=== PATIENT | female | born 1975 | race Caucasian/White ===

== ENCOUNTER 2024-12-25 08:59 | Emergency (ER) | payer OTHER, SELFPAY ==
[2024-12-25 09:12] VITALS: BP 150/85; PULSE 94; RESP 16; TEMP 36.3; O2SAT 100
--- NOTE | 2024-12-25 09:14 | ED.URI ---
HPI - URI/Sore Throat General Chief Complaint: Upper Respiratory Infection Stated Complaint: Upper Respiratory Infection Time Seen by Provider: 12/25/24 09:14 Source: patient Mode of arrival: ambulatory Limitations: no limitations History of Present Illness HPI Narrative: 49-year-old female with history of asthma presents with complaint of shortness of breath, wheezing. Patient visiting from out of town. Reports shortness of breath worse last night while laying in bed. States she can hear crackles in chest when laying flat at bedtime. Use Xopenex and did not feel like it was helping. Patient uses Xopenex inhaler due to albuterol causing jitteriness. Has appt with her business continuity coordinator in March. Tried singulair but felt it made symptoms worse. No URI symptoms. All systems reviewed and negative except as noted above. Related Data Home Medications ?Medication ?Instructions ?Recorded ?Confirmed ?Last Taken ?Type doxycycline monohydrate 40 mg PO 12/25/24 Unknown History capsule,immediate - delay release levalbuterol tartrate 45 inhalation 12/25/24 Unknown History mcg/actuation aerosol inhaler Allergies Allergy/AdvReac Type Severity Reaction Status Date / Time No Known Allergies Allergy Verified 12/25/24 09:23 Review of Systems Review of Systems: CONSTITUTIONAL: Denies fever, chills, or sweats. EYES: Denies visual changes, redness, or discharge. ENT: Denies rhinorrhea, congestion, sore throat, or otalgia. CARDIOVASCULAR: Denies chest pain, palpitations, or edema. RESPIRATORY: Denies cough. Reports dyspnea. GASTROINTESTINAL: Denies abdominal pain, nausea, vomiting, or diarrhea. GENITOURINARY: Denies dysuria or hematuria. SKIN: Denies rash or itching. MUSCULOSKELETAL: Denies back pain, joint pain, or myalgia. NEUROLOGIC: Denies headache, numbness, or weakness. PSYCHIATRIC: Denies anxiety or depression. All other systems reviewed are negative, except as documented in HPI. PMFSH Comments At time of signature, agree with nursing past medical, surgical, social and family history. There is no relevant family history pertinent to the presenting complaint. Exam Narrative: GENERAL: This is a well-nourished, well-developed patient, in no apparent distress. HEAD: normocephalic, atraumatic. EYES: PERRL. Sclera clear/white. Vision is grossly intact. EARS: External ears normal, auditory canals clear and without drainage, TMs normal without perforation. Hearing grossly intact. NOSE: External nose normal with no obvious nasal discharge, nares without redness, no rhinorrhea. THROAT: Mucous membranes moist, posterior pharynx clear. NECK: Neck supple, non-tender without lymphadenopathy, masses or thyromegaly. CARDIOVASCULAR: Regular rate and rhythm without murmurs, gallops, or rubs. RESPIRATORY: Clear to auscultation. Breath sounds equal bilaterally. No wheezes, rales, or rhonchi. SKIN: warm, Dry, intact with no suspicious lesions or rash, good texture and turgor. NEURO: awake, alert, and oriented to person, place and time. There were no obvious focal neurologic abnormalities. EXTREMITIES: No joint tenderness, effusion, or edema noted. Course Course Level of Care: Express Care Visit Reevaluation(s) Reevaluation #1: Patient reports feeling better after Xopenex. States she feels ?more open ?. No wheezing or crackles noted before or after Xopenex treatment. Vital Signs Vital signs: Vital Signs Temperature 36.3 C L 12/25/24 09:12 Pulse Rate 94 12/25/24 09:12 Respiratory Rate 16 12/25/24 09:12 Blood Pressure 150/85 H 12/25/24 09:12 Pulse Oximetry 100 12/25/24 09:12 Temperature 36.3 C L 12/25/24 09:12 Pulse Rate 94 12/25/24 09:12 Respiratory Rate 16 12/25/24 09:12 Blood Pressure 150/85 H 12/25/24 09:12 Pulse Oximetry 100 12/25/24 09:12 MDM - URI/Sore Throat MDM Narrative Medical decision making narrative: Patient has Xopenex and Breo inhaler prescribed from primary care physician. Will start prednisone burst. Patient is alert, nontoxic. No respiratory distress. Recommend follow-up with primary care physician if not improving. Recommend she go to the ER for any worsening of symptoms. Discharge Plan Discharge Clinical Impression: Asthma exacerbation Patient Disposition: Home Condition: Stable Instructions: Asthma (ED) Additional Instructions: Take prednisone as prescribed. Start prednisone prescription tomorrow morning. Continue using inhalers as prescribed. Purchase an [id number] antihistamine such as Claritin or Zyrtec and take daily. For any worsening of your symptoms such as chest pain or difficulty breathing go to the ER. Follow-up with business continuity coordinator at scheduled appointment. Patient Language: Vincentian Prescriptions: New prednisone 20 mg tablet 40 mg PO DAILY 5 Days Qty: 10 0RF No Action levalbuterol tartrate 45 mcg/actuation HFA aerosol inhaler INHALATION doxycycline monohydrate 40 mg capsule,IR - delay rel,biphase PO Follow-up/Referrals: PHYSICIAN,ENERGY CONSULTANT [Primary Care Provider] - Time of Disposition: 10:01
[2024-12-25 09:18] VITALS: PULSE 94; RESP 16; O2SAT 100
[2024-12-25] MEDS: LEVALBUTEROL NEB 1.25 MG/3 ML INHALATION (09:32)
[2024-12-25] MEDS: predniSONE 20 MG TABLET 40 MG PO (09:32)
[2024-12-25 09:40] VITALS: PULSE 98; RESP 16; O2SAT 100
== END 2024-12-25 10:04 | disposition home or self-care (01) ==
PROVIDERS: Emergency Provider Nurse Practitioner Family
DX: J45.901 Unspecified asthma with (acute) exacerbation (principal)
CPT/HCPCS: 94640; 99203; G0463; J7512